=== PATIENT | male | born 1990 | race Caucasian/White ===

== ENCOUNTER 2017-01-11 16:05 | Emergency (ER) | payer SELFPAY ==
[2014-06-02 23:20] VITALS: BP 118/82
[~2017-01-11 16:05] MED LIST: AMIODARONE 150 MG/3 ML VIAL ONE; CALCIUM CHLORIDE 1,000 MG/10 ML DISP.SYRIN IV ONE; EPINEPHRINE 1 MG/10 ML DISP.SYRIN. ONE; NALOXONE 2 MG/2 ML DISP.SYRIN. ONE; SODIUM BICARB ADULT 8.4% 50 MEQ/50 ML DISP.SYRIN. ONE
--- NOTE | 2017-01-11 16:40 | PHYS DOC ---
Past Medical History Past Medical History: Arthritis Past Surgical History: Other Additional Past Surgical Histo: FRACTURED LEFT ARM Alcohol Use: None Drug Use: None Adult General Chief Complaint Chief Complaint: CPR/FULL ARREST HPI HPI Patient is a 26 year old male who presents to the emergency department cardiac arrest. The patient was brought emergently by EMS. 911 was called at 1541 due to unresponsive patient. EMS responded at 1543. Patient was found to have an initial heart rhythm of ventricular fibrillation. Family stated that the patient suddenly became unresponsive after coughing up blood. Patient did not have any reported known health problems. EMS reports from family that patient may have overdosed on hydrocodone though this is not confirmed at this time. The patient was defibrillated in the field. An attempt is made at placement of airway in the field prior to arrival but was unsuccessful. Patient was given a total of 4 doses of epinephrine prior to arrival while EMS. Review of Systems Review of Systems Unable to obtain, patient unresponsive Allergies Allergies Allergies Coded Allergies Type Severity Reaction Last Updated Verified No Known Allergies Allergy Unknown 06/02/14 Yes Physical Exam Physical Exam Constitutional: Pulseless, apneic, undergoing CPR. [] HENT: Normocephalic, atraumatic, bilateral external ears normal, oropharynx moist, mucous membranes cyanotic, nose normal. [] Eyes: Pupils fixed and dilated. [] Neck: Normal range of motion, no tenderness, supple, no stridor. [] Cardiovascular: No audible heart tones [] Lungs & Thorax: No spontaneous respirations [] Abdomen: Bowel sounds absent, abdomen nondistended. [] Skin: Cold, cyanotic. [] Extremities: No deformities, cyanotic extremities, no palpable spontaneous pulses. [] Neurologic: Unresponsive. [] Current Patient Data Lab Values Laboratory Tests Test 01/11/17 16:15 Glucose (Fingerstick) 134mg/dL (70-99) H EKG EKG Prehospital rhythm strip: Ventricular fibrillation Initial emergency department rhythm strip: Asystole [] Radiology/Procedures Radiology/Procedures Not performed [] Course & Med Decision Making Course & Med Decision Making Pertinent Labs and Imaging studies reviewed. (See chart for details) Please refer to CODE BLUE sheet for information on medications given. Patient received continuous CPR while in the emergency department. Despite aggressive therapy, the patient continued to remain in asystole throughout his emergency department stay. After a total of 40 minutes of CPR, the patient failed to return spontaneous circulation. Patient was pronounced at 1621. The family was informed of the patient's staff immediately after. I spoke with Dr. Restrepo at 1640. The patient will be [place] [facility] [place] of [place] to determine cause of . Critical care time excluding procedures: 30 minutes. Dragon Disclaimer Dragon Disclaimer This electronic medical record was generated, in whole or in part, using a voice recognition dictation system. Intubation Procedure Intub Indication: Respiratory failure Consent: Unable to give consent due to emergent nature. Medications Used: see nursing note Procedure: The patient was placed in the appropriate position. Intubation was performed under direct laryngoscopy with placement of a 8.0 endotracheal tube. Secured at 22 cm at the lip. Initial confirmation of placement included bilateral breath sounds, tube fogging, adequate chest rise, adequate pulse oximetry reading. The patient tolerated the procedure well. Complications: none. Departure Departure Impression: Primary Impression: Cardiac arrest Disposition: 20 Condition: Referrals: NO PCP (PCP) MADELAINE CUNNINGHAM MD Jan 11, 2017 16:40
== END 2017-01-11 18:12 | disposition expired ==
LOC: ER 16:05
DX: I46.9 Cardiac arrest, cause unspecified (principal); R40.20 Unspecified coma; M19.90 Unspecified osteoarthritis, unspecified site
CPT/HCPCS: 31500; 82947; 92950; 99291; J0171; J0282; J2310; J3490